=== PATIENT | male | born 1970 | race Asian ===

== ENCOUNTER 2020-04-13 17:52 | Inpatient (IN) | payer MEDICAID ==
[~2020-04-13] VITALS: Ht 167.6 cm; Wt 77.0 kg
[2020-04-13 18:25] LABS: BASOPHILS % (AUTO) 0.5 % (0.0-2.0); EOSINOPHILS % (AUTO) 1.5 % (1.0-6.0); HEMATOCRIT 49.6 % (41-53); HEMOGLOBIN 16.7 g/dL (13.5-17.5); LYMPHOCYTES # (AUTO) 1.3 K/uL (1.0-4.8); LYMPHOCYTES % (AUTO) 14.4 % (22.0-44.0); MEAN CORPUSCULAR HGB CONC 33.6 G/dL (31.0-37.0); MEAN CORPUSCULAR VOLUME 86 fL (80-100); MONOCYTES # (AUTO) 0.7 K/uL (0.1-1.0); MONOCYTES % (AUTO) 7.3 % (2.0-9.0); NEUTROPHILS # (AUTO) 7.1 K/uL (1.8-7.7); NEUTROPHILS % (AUTO) 76.3 % (40.0-70.0); PLATELET COUNT (AUTO) 281 K/uL (150-450); RED BLOOD CELL COUNT(AUTO) 5.74 MIL/uL (4.50-5.90); RED CELL DISTRIBUTION WIDTH 13.6 % (11.5-14.5)
[2020-04-13 18:35] LABS: ANION GAP 6 mmol/L (8-16); CALCIUM, TOTAL 8.6 mg/dL (8.8-10.5); CARBON DIOXIDE 29 mmol/L (22-29); CHLORIDE 105 mmol/L (98-107); CREATININE 1.18 mg/dL (0.60-1.30); GLOMERULAR FILTR. RATE CALC > 60 mL/min (>60); GLUCOSE,RANDOM 139 mg/dL (70-110); POTASSIUM 3.5 mmol/L (3.5-5.1); SODIUM SERUM 140 mmol/L (136-145); UREA NITROGEN, BLOOD 11 mg/dL (7-18)
[2020-04-13 18:40] LABS: ALANINE AMINOTRANSFERASE 16 U/L (12-78); ALBUMIN 3.2 g/dL (3.4-5.0); ALKALINE PHOSPHATASE 76 U/L (46-116); ASPARTATE AMINOTRANSFERASE 20 U/L (15-37); BILIRUBIN,TOTAL 0.2 mg/dL (0.1-1.0); INR 1.1 (0.9-1.1); PROTHROMBIN TIME 11.2 SEC (9.4-11.6)
[2020-04-13] MEDS ORDERED: ONDANSETRON HCL 4 MG/2 ML VIAL IVP PRN ×2 (19:00→19:45)
[2020-04-13] MEDS ORDERED: ACETAMINOPHEN 325 MG TABLET PO PRN (19:00)
[2020-04-13] MEDS ORDERED: 0.9% SODIUM CHLORIDE 10 ML SYRINGE IVP PRN (19:00)
[2020-04-13] MEDS ORDERED: SODIUM CHLORIDE 0.9% 100 ML ONE (19:01)
[2020-04-13] MEDS ORDERED: IOVERSOL 320 MG/ML 100 ML VIAL ONE (19:01)
[2020-04-13] MEDS ORDERED: LevETIRAcetam 1,000 MG in DEXTROSE 5%-WATER 100 ML IV ONE (19:30)
[2020-04-13] MEDS ORDERED: PROPOFOL 1% 20 ML VIAL IVP ONE (19:30)
[2020-04-13 19:40] LABS: APPEARANCE,URINE CLEAR (CLEAR); BILIRUBIN,URINE NEGATIVE (NEGATIVE); GLUCOSE, URINE (UA) 100 mg/dL (NEGATIVE); KETONES,URINE NEGATIVE (NEGATIVE); LEUKOCYTE ESTERASE ,URINE NEGATIVE (NEGATIVE); NITRATE,URINE NEGATIVE (NEGATIVE); OCCULT BLOOD,URINE NEGATIVE (NEGATIVE); PH,URINE 7.5 (5.0-8.0); PROTEIN,URINE POS 1+ (NEGATIVE)
[2020-04-13] MEDS ORDERED: FentaNYL CITRATE-PF 100 MCG/2 ML VIAL IVP PRN (19:45)
[2020-04-13 19:47] LABS: AMPHET/METH SCREEN,URINE POSITIVE (NEGATIVE); BARBITURATE SCREEN, URINE NEGATIVE (NEGATIVE); BENZODIAZEPINES SCREEN,URINE NEGATIVE (NEGATIVE); CANNABINOID SCREEN,URINE NEGATIVE (NEGATIVE); COCAINE SCREEN,URINE NEGATIVE (NEGATIVE); METHADONE SCREEN, URINE NEGATIVE (NEGATIVE); OPIATE SCREEN,URINE NEGATIVE (NEGATIVE); PHENCYCLIDINE SCREEN,URINE NEGATIVE (NEGATIVE)
[2020-04-13] MEDS ORDERED: LORazepam 2 MG/ML VIAL ONE (19:47)
[2020-04-13] MEDS ORDERED: OXYGEN THERAPY IH SCH (20:00)
[2020-04-13 20:10] LABS: BACTERIA,URINE None Seen /HPF (None Seen); RBC,URINE None Seen /HPF (0-2); SQUAMOUS EPITHELIAL CELL,UR None Seen /LPF (None Seen); WBC,URINE 0-2 /HPF (0-5)
[2020-04-13] MEDS ORDERED: NiCARDipine HCL 25 MG in DEXTROSE 5%-WATER 240 ML IV PRN (21:00)
[2020-04-13] MEDS ORDERED: LORazepam 2 MG/ML VIAL IVP ONE ×2 (21:00)
[2020-04-13] MEDS ORDERED: MIDAZOLAM HCL 5 MG/ML VIAL IVP ONE (21:00)
[2020-04-13] MEDS ORDERED: FentaNYL CITRATE-PF 100 MCG/2 ML VIAL IVP ONE (21:00)
[2020-04-13] MEDS: FAMOTIDINE 10 MG/ML 2 ML VIAL IVP SCH (21:40)
[2020-04-13] MEDS: PROPOFOL 1000 MG/ISO-OSM 100 ML IV PRN ×2 (21:43→23:10)
[2020-04-13 21:57] LABS: ABG A-A DIFF O2 368.3 mmHg (10-20.0); ABG BASE EXCESS 2.1 mmol/L (-2.0-3.0); ABG CARBOXYHEMOGLOBIN 1.1 % (0.0-1.5); ABG HCO3 25.8 mmol/L (22.0-26.0); ABG METHEMOGLOBIN 0.3 % (0.0-1.5); ABG OXYGEN CONTENT 23.6 mL/dL (15.0-23.0); ABG OXYGEN SATURATION 99.6 % (95.0-98.0); ABG OXYHEMOGLOBIN 98.2 % (94.0-100.0); ABG PCO2 46 mmHg (35-45); ABG TOTAL HEMOGLOBIN 16.6 G/dL (12.0-18.0); PO2, ARTERIAL BG 300.1 mmHg (88.0-96.0); SOURCE, BLOOD GAS ARTERIAL; TEMPERATURE, FAHRENHEIT, BG 97.8 FAHREN (96.0-98.6)
[2020-04-13 21:58] LABS: O2 DEVICE,BLOOD GAS VENTILATOR (ROOM AIR); PEEP,BG 5 cm H2O; SITE, BLOOD GAS LFT RADIAL; VT, ABG 450 ml
[2020-04-13] MEDS: MIDAZOLAM HCL 100 MG in DEXTROSE 5%-WATER 180 ML IV PRN (22:01)
[2020-04-13 23:13] LABS: COVID AG,FIA SOURCE NASOPHARYNGEAL
[2020-04-14] VITALS (8 sets, daily range): BP systolic 121–152; BP diastolic 66–93
[2020-04-14] MEDS ORDERED: PROPOFOL 1000 MG/ISO-OSM 100 ML IV ONE (07:52)
[2020-04-14] MEDS ORDERED: MIDAZOLAM HCL 100 MG in DEXTROSE 5%-WATER 180 ML IV PRN (08:00)
[2020-04-14] MEDS: PROPOFOL 1000 MG/ISO-OSM 100 ML IV PRN (08:00)
[2020-04-14] MEDS: FAMOTIDINE 10 MG/ML 2 ML VIAL IVP SCH ×2 (08:13→20:26)
[2020-04-14] MEDS: CHLORHEXIDINE GLUCONATE 0.12% 15 ML UDCUP ORAL RINSE MM SCH ×3 (08:13→20:26)
[2020-04-14] MEDS: LevETIRAcetam 500 MG in DEXTROSE 5%-WATER 100 ML IV SCH ×2 (08:13→20:26)
[2020-04-14] MEDS: ACETAMINOPHEN 650 MG/20.3 ML SOLUTION UDCUP NG PRN (20:41)
[2020-04-15] VITALS: BP 144/89
[2020-04-15] MEDS ORDERED: SODIUM CHLORIDE 0.9% 250 ML IV ONE (00:19)
[2020-04-15 04:00] VITALS: BP 155/94
[2020-04-15 05:32] LABS: BASOPHILS % (AUTO) 0.5 % (0.0-2.0); EOSINOPHILS % (AUTO) 1.2 % (1.0-6.0); HEMOGLOBIN 15.5 g/dL (13.5-17.5); LYMPHOCYTES % (AUTO) 6.5 % (22.0-44.0); MEAN CORPUSCULAR HEMOGLOBIN 29.7 pg (26.0-34.0); MEAN CORPUSCULAR HGB CONC 34.5 G/dL (31.0-37.0); MEAN CORPUSCULAR VOLUME 86 fL (80-100); MONOCYTES # (AUTO) 1.4 K/uL (0.1-1.0); MONOCYTES % (AUTO) 9.1 % (2.0-9.0); NEUTROPHILS # (AUTO) 13.1 K/uL (1.8-7.7); NEUTROPHILS % (AUTO) 82.7 % (40.0-70.0); PLATELET COUNT (AUTO) 231 K/uL (150-450); RED BLOOD CELL COUNT(AUTO) 5.21 MIL/uL (4.50-5.90); RED CELL DISTRIBUTION WIDTH 13.3 % (11.5-14.5)
[2020-04-15 05:45] LABS: ANION GAP 5 mmol/L (8-16); CALCIUM, TOTAL 8.3 mg/dL (8.8-10.5); CARBON DIOXIDE 29 mmol/L (22-29); CHLORIDE 104 mmol/L (98-107); CREATININE 1.15 mg/dL (0.60-1.30); GLOMERULAR FILTR. RATE CALC > 60 mL/min (>60); GLUCOSE,RANDOM 140 mg/dL (70-110); POTASSIUM 3.4 mmol/L (3.5-5.1); SODIUM SERUM 138 mmol/L (136-145); UREA NITROGEN, BLOOD 11 mg/dL (7-18)
[2020-04-15] MEDS: PROPOFOL 1000 MG/ISO-OSM 100 ML IV PRN ×3 (07:31→21:34)
[2020-04-15 08:00] VITALS: BP 123/85
[2020-04-15] MEDS: LevETIRAcetam 500 MG in DEXTROSE 5%-WATER 100 ML IV SCH ×2 (08:43→20:09)
[2020-04-15] MEDS: CHLORHEXIDINE GLUCONATE 0.12% 15 ML UDCUP ORAL RINSE MM SCH ×2 (08:43→20:43)
[2020-04-15] MEDS: FAMOTIDINE 10 MG/ML 2 ML VIAL IVP SCH ×2 (08:43→20:43)
[2020-04-15 12:00] VITALS: BP 152/99
[2020-04-15] MEDS ORDERED: METOPROLOL TARTRATE 5 MG/5 ML VIAL IVP PRN (13:00)
[2020-04-15] MEDS: SODIUM CHLORIDE 3% 500 ML IV SCH (14:42)
[2020-04-15 16:00] VITALS: BP 158/95
[2020-04-15] MEDS: HydrALAZINE HCL 20 MG/ML VIAL IVP PRN (17:29)
[2020-04-15] MEDS: ACETAMINOPHEN 650 MG/20.3 ML SOLUTION UDCUP NG PRN (18:54)
[2020-04-15] MEDS: POTASSIUM CHLORIDE 20 MEQ ER TABLET PO PRN ×2 (18:58→23:36)
[2020-04-15 20:00] VITALS: BP 163/86
[2020-04-15 23:27] LABS: POTASSIUM 3.4 mmol/L (3.5-5.1)
[2020-04-16] VITALS: BP 159/88
[2020-04-16] MEDS: ACETAMINOPHEN 650 MG/20.3 ML SOLUTION UDCUP NG PRN ×3 (00:01→13:02)
[2020-04-16] MEDS: PROPOFOL 1000 MG/ISO-OSM 100 ML IV PRN ×6 (01:14→20:36)
[2020-04-16 01:36] LABS: APPEARANCE,URINE CLOUDY (CLEAR); GLUCOSE, URINE (UA) NEGATIVE (NEGATIVE); KETONES,URINE TRACE mg/dL (NEGATIVE); LEUKOCYTE ESTERASE ,URINE SMALL (NEGATIVE); NITRATE,URINE NEGATIVE (NEGATIVE); OCCULT BLOOD,URINE LARGE (NEGATIVE); PH,URINE 5.5 (5.0-8.0); PROTEIN,URINE POS 1+ (NEGATIVE)
[2020-04-16 01:50] LABS: BILIRUBIN,URINE PRELIM. POSITIVE (NEGATIVE)
[2020-04-16 02:07] LABS: BACTERIA,URINE Moderate /HPF (None Seen); RBC,URINE Full Field /HPF (0-2); SQUAMOUS EPITHELIAL CELL,UR Few /LPF (None Seen); WBC,URINE 26-50 /HPF (0-5)
[2020-04-16 04:00] VITALS: BP 147/89
[2020-04-16 04:04] LABS: ANION GAP 6 mmol/L (8-16); CALCIUM, TOTAL 8.1 mg/dL (8.8-10.5); CARBON DIOXIDE 28 mmol/L (22-29); CHLORIDE 110 mmol/L (98-107); CREATININE 1.09 mg/dL (0.60-1.30); GLOMERULAR FILTR. RATE CALC > 60 mL/min (>60); GLUCOSE,RANDOM 114 mg/dL (70-110); PHOSPHORUS 2.6 mg/dL (2.5-4.9); SODIUM SERUM 144 mmol/L (136-145); UREA NITROGEN, BLOOD 11 mg/dL (7-18)
[2020-04-16 08:00] VITALS: BP 145/104
[2020-04-16] MEDS: LevETIRAcetam 500 MG in DEXTROSE 5%-WATER 100 ML IV SCH ×2 (08:28→19:24)
[2020-04-16] MEDS: CHLORHEXIDINE GLUCONATE 0.12% 15 ML UDCUP ORAL RINSE MM SCH ×2 (08:29→20:36)
[2020-04-16] MEDS: FAMOTIDINE 10 MG/ML 2 ML VIAL IVP SCH ×2 (08:29→20:36)
[2020-04-16] MEDS: SODIUM CHLORIDE 3% 500 ML IV SCH ×2 (09:47→22:54)
[2020-04-16] MEDS: CefTRIAXone 1 GM/DEXTROSE 50 ML IV SCH (09:47)
[2020-04-16 12:00] VITALS: BP 145/104
[2020-04-16 16:00] VITALS: BP 131/91
[2020-04-16] MEDS ORDERED: SODIUM CHLORIDE 0.9% 250 ML IV ONE (17:29)
[2020-04-16 20:00] VITALS: BP 135/86
[2020-04-17] VITALS: BP 146/92
[2020-04-17] MEDS: PROPOFOL 1000 MG/ISO-OSM 100 ML IV PRN ×5 (01:00→22:33)
[2020-04-17] MEDS: ACETAMINOPHEN 650 MG/20.3 ML SOLUTION UDCUP NG PRN (01:08)
[2020-04-17 04:00] VITALS: BP 130/73
[2020-04-17 05:13] LABS: BASOPHILS % (AUTO) 0.2 % (0.0-2.0); EOSINOPHILS % (AUTO) 0.2 % (1.0-6.0); HEMATOCRIT 40.1 % (41-53); HEMOGLOBIN 12.9 g/dL (13.5-17.5); LYMPHOCYTES % (AUTO) 8.7 % (22.0-44.0); MEAN CORPUSCULAR HEMOGLOBIN 28.2 pg (26.0-34.0); MEAN CORPUSCULAR HGB CONC 32.3 G/dL (31.0-37.0); MEAN CORPUSCULAR VOLUME 87 fL (80-100); MONOCYTES # (AUTO) 1.1 K/uL (0.1-1.0); MONOCYTES % (AUTO) 9.5 % (2.0-9.0); NEUTROPHILS # (AUTO) 9.4 K/uL (1.8-7.7); NEUTROPHILS % (AUTO) 81.4 % (40.0-70.0); PLATELET COUNT (AUTO) 213 K/uL (150-450); RED BLOOD CELL COUNT(AUTO) 4.59 MIL/uL (4.50-5.90); RED CELL DISTRIBUTION WIDTH 13.7 % (11.5-14.5)
[2020-04-17 05:54] LABS: ANION GAP -1 mmol/L (8-16); CALCIUM, TOTAL 8.5 mg/dL (8.8-10.5); CARBON DIOXIDE 25 mmol/L (22-29); CHLORIDE 108 mmol/L (98-107); CREATININE 1.04 mg/dL (0.60-1.30); GLOMERULAR FILTR. RATE CALC > 60 mL/min (>60); GLUCOSE,RANDOM 127 mg/dL (70-110); POTASSIUM 3.7 mmol/L (3.5-5.1); SODIUM SERUM 132 mmol/L (136-145); UREA NITROGEN, BLOOD 16 mg/dL (7-18)
[2020-04-17] MEDS: LevETIRAcetam 500 MG in DEXTROSE 5%-WATER 100 ML IV SCH ×2 (07:46→20:23)
[2020-04-17] MEDS: CefTRIAXone 1 GM/DEXTROSE 50 ML IV SCH (07:46)
[2020-04-17] MEDS: CHLORHEXIDINE GLUCONATE 0.12% 15 ML UDCUP ORAL RINSE MM SCH ×2 (07:47→20:26)
[2020-04-17] MEDS: FAMOTIDINE 10 MG/ML 2 ML VIAL IVP SCH ×2 (07:47→20:26)
[2020-04-17 08:00] VITALS: BP 136/91
[2020-04-17] MEDS: SODIUM CHLORIDE 3% 500 ML IV SCH ×3 (10:42→20:35)
[2020-04-17] MEDS ORDERED: METOPROLOL TARTRATE 25 MG TABLET NG SCH (11:30)
[2020-04-17 12:00] VITALS: BP 127/88
[2020-04-17 13:22] LABS: ABG A-A DIFF O2 108.4 mmHg (10-20.0); ABG BASE EXCESS -1.3 mmol/L (-2.0-3.0); ABG CARBOXYHEMOGLOBIN 0.6 % (0.0-1.5); ABG HCO3 23.7 mmol/L (22.0-26.0); ABG METHEMOGLOBIN 0.3 % (0.0-1.5); ABG OXYGEN SATURATION 98.7 % (95.0-98.0); ABG OXYHEMOGLOBIN 97.8 % (94.0-100.0); ABG PCO2 38 mmHg (35-45); ABG PH 7.404 (7.35-7.450); ABG TOTAL HEMOGLOBIN 14.4 G/dL (12.0-18.0); PO2, ARTERIAL BG 132.6 mmHg (88.0-96.0); SOURCE, BLOOD GAS ARTERIAL; TEMPERATURE, FAHRENHEIT, BG 98.6 FAHREN (96.0-98.6)
[2020-04-17 13:24] LABS: O2 DEVICE,BLOOD GAS VENTILATOR (ROOM AIR); SITE, BLOOD GAS RT RADIAL
[2020-04-17 13:25] LABS: PEEP,BG 5 cm H2O; VT, ABG 450 ml
[2020-04-17] MEDS: HydrALAZINE HCL 25 MG TABLET NG SCH ×2 (13:30→23:57)
[2020-04-17 16:00] VITALS: BP 146/91
[2020-04-17] MEDS ORDERED: SODIUM CHLORIDE 0.9% 250 ML IV ONE (18:42)
[2020-04-17 20:00] VITALS: BP 157/81
[2020-04-17] MEDS: HydrALAZINE HCL 20 MG/ML VIAL IVP PRN (21:06)
[2020-04-17] MEDS ORDERED: PNEUMOCOCCAL VACCINE POLYVALENT 0.5 ML VIAL [PPSV23] IM ONE (23:45)
[2020-04-17] MEDS ORDERED: INFLUENZA VIRUS VACCINE QVS 2020-21 (6MO+)/PF 60 MCG/0.5 ML SYRINGE IM ONE (23:45)
[2020-04-18] VITALS: BP 141/72
[2020-04-18] MEDS: PROPOFOL 1000 MG/ISO-OSM 100 ML IV PRN ×6 (01:45→21:57)
[2020-04-18] MEDS: ACETAMINOPHEN 650 MG/20.3 ML SOLUTION UDCUP NG PRN ×3 (03:07→23:36)
[2020-04-18] MEDS: MIDAZOLAM HCL 100 MG in DEXTROSE 5%-WATER 180 ML IV PRN ×2 (03:45→20:29)
[2020-04-18 04:00] VITALS: BP 135/72
[2020-04-18 04:57] LABS: BASOPHILS % (AUTO) 0.5 % (0.0-2.0); EOSINOPHILS % (AUTO) 0.1 % (1.0-6.0); HEMATOCRIT 40.1 % (41-53); HEMOGLOBIN 13.2 g/dL (13.5-17.5); LYMPHOCYTES # (AUTO) 0.9 K/uL (1.0-4.8); LYMPHOCYTES % (AUTO) 8.1 % (22.0-44.0); MEAN CORPUSCULAR HEMOGLOBIN 28.8 pg (26.0-34.0); MEAN CORPUSCULAR VOLUME 87 fL (80-100); MONOCYTES # (AUTO) 1.3 K/uL (0.1-1.0); MONOCYTES % (AUTO) 11.5 % (2.0-9.0); NEUTROPHILS # (AUTO) 8.9 K/uL (1.8-7.7); NEUTROPHILS % (AUTO) 79.8 % (40.0-70.0); PLATELET COUNT (AUTO) 206 K/uL (150-450); RED CELL DISTRIBUTION WIDTH 13.7 % (11.5-14.5)
[2020-04-18 05:14] LABS: ANION GAP 15 mmol/L (8-16); CALCIUM, TOTAL 8.6 mg/dL (8.8-10.5); CARBON DIOXIDE 27 mmol/L (22-29); CHLORIDE 114 mmol/L (98-107); CREATININE 1.21 mg/dL (0.60-1.30); GLOMERULAR FILTR. RATE CALC > 60 mL/min (>60); GLUCOSE,RANDOM 176 mg/dL (70-110); PHOSPHORUS 2.8 mg/dL (2.5-4.9); POTASSIUM 3.6 mmol/L (3.5-5.1); SODIUM SERUM 156 mmol/L (136-145); UREA NITROGEN, BLOOD 18 mg/dL (7-18)
[2020-04-18] MEDS: SODIUM CHLORIDE 3% 500 ML IV SCH ×2 (05:50→19:26)
[2020-04-18] MEDS: POTASSIUM CHL 10 MEQ/WATER 50 ML IV PRN ×3 (06:33→08:37)
[2020-04-18 08:00] VITALS: BP 140/80
[2020-04-18] MEDS: HydrALAZINE HCL 25 MG TABLET NG SCH ×3 (08:53→16:07)
[2020-04-18] MEDS: FAMOTIDINE 10 MG/ML 2 ML VIAL IVP SCH ×2 (08:53→20:21)
[2020-04-18] MEDS: CHLORHEXIDINE GLUCONATE 0.12% 15 ML UDCUP ORAL RINSE MM SCH ×2 (08:53→20:21)
[2020-04-18] MEDS: CefTRIAXone 1 GM/DEXTROSE 50 ML IV SCH (08:53)
[2020-04-18] MEDS: LevETIRAcetam 500 MG in DEXTROSE 5%-WATER 100 ML IV SCH ×2 (08:53→19:21)
[2020-04-18] MEDS ORDERED: MAGNESIUM HYDROXIDE SUSPENSION 30 ML UDCUP PO PRN (10:00)
[2020-04-18] MEDS ORDERED: BISACODYL 10 MG RECTAL RECTAL SUPPOSITORY PR PRN (10:00)
[2020-04-18 12:00] VITALS: BP 157/77
[2020-04-18] MEDS: FentaNYL CITRATE PF 500 MCG in DEXTROSE 5%-WATER 90 ML IV PRN (14:23)
[2020-04-18 16:00] VITALS: BP 150/75
[2020-04-18] MEDS: HydrALAZINE HCL 20 MG/ML VIAL IVP PRN (16:02)
[2020-04-18] MEDS ORDERED: SODIUM CHLORIDE 0.9% 250 ML IV ONE (19:26)
[2020-04-18 20:00] VITALS: BP 144/77
[2020-04-18] MEDS: DOCUSATE SODIUM 100 MG/10 ML LIQUID UDCUP PO SCH (20:21)
[2020-04-19] VITALS: BP 139/73
[2020-04-19] MEDS: FentaNYL CITRATE PF 500 MCG in DEXTROSE 5%-WATER 90 ML IV PRN ×2 (00:22→12:58)
[2020-04-19] MEDS: PROPOFOL 1000 MG/ISO-OSM 100 ML IV PRN ×6 (00:23→21:04)
[2020-04-19 04:00] VITALS: BP 133/84
[2020-04-19 06:13] LABS: ANION GAP 2 mmol/L (8-16); CALCIUM, TOTAL 8.6 mg/dL (8.8-10.5); CARBON DIOXIDE 26 mmol/L (22-29); CHLORIDE 119 mmol/L (98-107); CREATININE 1.22 mg/dL (0.60-1.30); GLOMERULAR FILTR. RATE CALC > 60 mL/min (>60); GLUCOSE,RANDOM 104 mg/dL (70-110); PHOSPHORUS 2.7 mg/dL (2.5-4.9); POTASSIUM 3.9 mmol/L (3.5-5.1); SODIUM SERUM 147 mmol/L (136-145); UREA NITROGEN, BLOOD 19 mg/dL (7-18)
[2020-04-19] MEDS ORDERED: SODIUM CHLORIDE 0.9% 250 ML IV ONE ×2 (06:31→20:29)
[2020-04-19] MEDS: SODIUM CHLORIDE 3% 500 ML IV SCH ×2 (07:45→21:15)
[2020-04-19 08:00] VITALS: BP 136/85
[2020-04-19] MEDS: LevETIRAcetam 500 MG in DEXTROSE 5%-WATER 100 ML IV SCH ×2 (08:28→20:40)
[2020-04-19] MEDS: HydrALAZINE HCL 25 MG TABLET NG SCH ×3 (08:28→23:39)
[2020-04-19] MEDS: CefTRIAXone 1 GM/DEXTROSE 50 ML IV SCH (08:28)
[2020-04-19] MEDS: DOCUSATE SODIUM 100 MG/10 ML LIQUID UDCUP PO SCH ×2 (08:29→21:02)
[2020-04-19] MEDS: FAMOTIDINE 10 MG/ML 2 ML VIAL IVP SCH ×2 (08:29→21:03)
[2020-04-19] MEDS: CHLORHEXIDINE GLUCONATE 0.12% 15 ML UDCUP ORAL RINSE MM SCH ×2 (08:29→21:03)
[2020-04-19 08:57] LABS: ABG A-A DIFF O2 115.8 mmHg (10-20.0); ABG BASE EXCESS 0.5 mmol/L (-2.0-3.0); ABG CARBOXYHEMOGLOBIN 0.4 % (0.0-1.5); ABG HCO3 25.1 mmol/L (22.0-26.0); ABG METHEMOGLOBIN 0.3 % (0.0-1.5); ABG OXYGEN CONTENT 17.4 mL/dL (15.0-23.0); ABG OXYGEN SATURATION 97.1 % (95.0-98.0); ABG OXYHEMOGLOBIN 96.4 % (94.0-100.0); ABG PCO2 37 mmHg (35-45); ABG PH 7.441 (7.35-7.450); ABG TOTAL HEMOGLOBIN 12.8 G/dL (12.0-18.0); O2 DEVICE,BLOOD GAS VENTILATOR (ROOM AIR); PO2, ARTERIAL BG 90.9 mmHg (88.0-96.0); SITE, BLOOD GAS LFT RADIAL; SOURCE, BLOOD GAS ARTERIAL; TEMPERATURE, FAHRENHEIT, BG 98.4 FAHREN (96.0-98.6)
[2020-04-19 08:58] LABS: PEEP,BG 5 cm H2O; VT, ABG 450 ml
[2020-04-19 11:24] LABS: BASOPHILS % (AUTO) 0.7 % (0.0-2.0); EOSINOPHILS % (AUTO) 2.1 % (1.0-6.0); HEMATOCRIT 39.4 % (41-53); HEMOGLOBIN 12.6 g/dL (13.5-17.5); LYMPHOCYTES # (AUTO) 1.4 K/uL (1.0-4.8); LYMPHOCYTES % (AUTO) 15.6 % (22.0-44.0); MEAN CORPUSCULAR HEMOGLOBIN 28.2 pg (26.0-34.0); MEAN CORPUSCULAR HGB CONC 32.1 G/dL (31.0-37.0); MEAN CORPUSCULAR VOLUME 88 fL (80-100); MONOCYTES % (AUTO) 10.9 % (2.0-9.0); NEUTROPHILS # (AUTO) 6.3 K/uL (1.8-7.7); NEUTROPHILS % (AUTO) 70.7 % (40.0-70.0); PLATELET COUNT (AUTO) 204 K/uL (150-450); RED BLOOD CELL COUNT(AUTO) 4.48 MIL/uL (4.50-5.90); RED CELL DISTRIBUTION WIDTH 13.9 % (11.5-14.5)
[2020-04-19 12:00] VITALS: BP 133/75
[2020-04-19] MEDS: MIDAZOLAM HCL 100 MG in DEXTROSE 5%-WATER 180 ML IV PRN (15:26)
[2020-04-19 16:00] VITALS: BP 134/75
[2020-04-19] MEDS: ACETAMINOPHEN 650 MG/20.3 ML SOLUTION UDCUP NG PRN (16:45)
[2020-04-19 20:00] VITALS: BP 107/63
[2020-04-20] VITALS: BP 113/67
[2020-04-20] MEDS: PROPOFOL 1000 MG/ISO-OSM 100 ML IV PRN ×4 (00:33→13:53)
[2020-04-20 04:00] VITALS: BP 113/71
[2020-04-20 05:42] LABS: ANION GAP 7 mmol/L (8-16); CALCIUM, TOTAL 8.4 mg/dL (8.8-10.5); CARBON DIOXIDE 28 mmol/L (22-29); CHLORIDE 121 mmol/L (98-107); CREATININE 1.21 mg/dL (0.60-1.30); GLOMERULAR FILTR. RATE CALC > 60 mL/min (>60); GLUCOSE,RANDOM 107 mg/dL (70-110); POTASSIUM 3.1 mmol/L (3.5-5.1); SODIUM SERUM 156 mmol/L (136-145); UREA NITROGEN, BLOOD 22 mg/dL (7-18)
[2020-04-20] MEDS: ACETAMINOPHEN 650 MG/20.3 ML SOLUTION UDCUP NG PRN ×2 (06:07→20:26)
[2020-04-20] MEDS: POTASSIUM CHLORIDE 20 MEQ ER TABLET PO PRN ×2 (06:07→12:34)
[2020-04-20] MEDS: FentaNYL CITRATE PF 500 MCG in DEXTROSE 5%-WATER 90 ML IV PRN (06:08)
[2020-04-20] MEDS: MIDAZOLAM HCL 100 MG in DEXTROSE 5%-WATER 180 ML IV PRN (06:09)
[2020-04-20] MEDS: LevETIRAcetam 500 MG in DEXTROSE 5%-WATER 100 ML IV SCH ×2 (07:57→20:25)
[2020-04-20] MEDS: CefTRIAXone 1 GM/DEXTROSE 50 ML IV SCH (07:58)
[2020-04-20 08:00] VITALS: BP 105/57
[2020-04-20] MEDS: HydrALAZINE HCL 25 MG TABLET NG SCH ×3 (08:00→23:27)
[2020-04-20] MEDS: CHLORHEXIDINE GLUCONATE 0.12% 15 ML UDCUP ORAL RINSE MM SCH ×2 (09:20→20:26)
[2020-04-20] MEDS: DOCUSATE SODIUM 100 MG/10 ML LIQUID UDCUP PO SCH ×2 (09:20→20:25)
[2020-04-20] MEDS: FAMOTIDINE 10 MG/ML 2 ML VIAL IVP SCH ×2 (09:20→20:25)
[2020-04-20 11:06] LABS: ANION GAP 10 mmol/L (8-16); CALCIUM, TOTAL 8.3 mg/dL (8.8-10.5); CARBON DIOXIDE 26 mmol/L (22-29); CHLORIDE 121 mmol/L (98-107); CREATININE 1.17 mg/dL (0.60-1.30); GLOMERULAR FILTR. RATE CALC > 60 mL/min (>60); GLUCOSE,RANDOM 123 mg/dL (70-110); POTASSIUM 3.4 mmol/L (3.5-5.1); SODIUM SERUM 157 mmol/L (136-145); UREA NITROGEN, BLOOD 21 mg/dL (7-18)
[2020-04-20 12:00] VITALS: BP 109/64
[2020-04-20 16:00] VITALS: BP 113/66
[2020-04-20 16:12] LABS: POTASSIUM 3.6 mmol/L (3.5-5.1)
[2020-04-20 20:00] VITALS: BP 125/73
[2020-04-20] MEDS ORDERED: SODIUM CHLORIDE 0.9% 250 ML IV ONE (20:02)
[2020-04-20] MEDS: SODIUM CHLORIDE 3% 500 ML IV SCH (20:29)
[2020-04-20] MEDS: POTASSIUM CHL 10 MEQ/WATER 50 ML IV PRN ×3 (22:14→23:27)
[2020-04-21] VITALS: BP 113/71
[2020-04-21] MEDS: PROPOFOL 1000 MG/ISO-OSM 100 ML IV PRN ×4 (00:19→21:28)
[2020-04-21] MEDS: MIDAZOLAM HCL 100 MG in DEXTROSE 5%-WATER 180 ML IV PRN ×2 (01:56→21:27)
[2020-04-21 04:00] VITALS: BP 123/77
[2020-04-21 06:16] LABS: ANION GAP 7 mmol/L (8-16); CALCIUM, TOTAL 8.2 mg/dL (8.8-10.5); CARBON DIOXIDE 28 mmol/L (22-29); CHLORIDE 116 mmol/L (98-107); CREATININE 1.13 mg/dL (0.60-1.30); GLOMERULAR FILTR. RATE CALC > 60 mL/min (>60); GLUCOSE,RANDOM 106 mg/dL (70-110); POTASSIUM 3.6 mmol/L (3.5-5.1); SODIUM SERUM 151 mmol/L (136-145); UREA NITROGEN, BLOOD 22 mg/dL (7-18)
[2020-04-21 08:00] VITALS: BP 130/71
[2020-04-21] MEDS: CefTRIAXone 1 GM/DEXTROSE 50 ML IV SCH (08:12)
[2020-04-21] MEDS: POTASSIUM CHL 10 MEQ/WATER 50 ML IV PRN ×3 (08:12→10:29)
[2020-04-21] MEDS: LevETIRAcetam 500 MG in DEXTROSE 5%-WATER 100 ML IV SCH ×2 (08:12→21:00)
[2020-04-21] MEDS: HydrALAZINE HCL 20 MG/ML VIAL IVP PRN (08:13)
[2020-04-21] MEDS: DOCUSATE SODIUM 100 MG/10 ML LIQUID UDCUP PO SCH ×2 (08:13→21:25)
[2020-04-21] MEDS: CHLORHEXIDINE GLUCONATE 0.12% 15 ML UDCUP ORAL RINSE MM SCH ×2 (08:13→21:25)
[2020-04-21] MEDS: HydrALAZINE HCL 25 MG TABLET NG SCH ×2 (08:14→16:23)
[2020-04-21] MEDS: FAMOTIDINE 10 MG/ML 2 ML VIAL IVP SCH ×2 (08:14→21:26)
[2020-04-21] MEDS: FentaNYL CITRATE PF 500 MCG in DEXTROSE 5%-WATER 90 ML IV PRN (10:26)
[2020-04-21 12:00] VITALS: BP 128/64
[2020-04-21 16:00] VITALS: BP 134/69
[2020-04-21 20:00] VITALS: BP 128/72
[2020-04-21] MEDS: SODIUM CHLORIDE 3% 500 ML IV SCH (21:00)
[2020-04-21] MEDS ORDERED: SODIUM CHLORIDE 0.9% 250 ML IV ONE (21:22)
[2020-04-22] VITALS: BP 119/75
[2020-04-22] MEDS: HydrALAZINE HCL 25 MG TABLET NG SCH ×3 (00:19→16:29)
[2020-04-22] MEDS: PROPOFOL 1000 MG/ISO-OSM 100 ML IV PRN ×3 (03:11→17:11)
[2020-04-22] MEDS: FentaNYL CITRATE PF 500 MCG in DEXTROSE 5%-WATER 90 ML IV PRN ×2 (03:12→17:10)
[2020-04-22 04:00] VITALS: BP 123/74
[2020-04-22 05:18] LABS: ANION GAP 5 mmol/L (8-16); CALCIUM, TOTAL 8.7 mg/dL (8.8-10.5); CARBON DIOXIDE 27 mmol/L (22-29); CHLORIDE 115 mmol/L (98-107); CREATININE 1.16 mg/dL (0.60-1.30); GLOMERULAR FILTR. RATE CALC > 60 mL/min (>60); GLUCOSE,RANDOM 122 mg/dL (70-110); POTASSIUM 3.6 mmol/L (3.5-5.1); SODIUM SERUM 147 mmol/L (136-145); UREA NITROGEN, BLOOD 24 mg/dL (7-18)
[2020-04-22 08:00] VITALS: BP 111/65
[2020-04-22] MEDS: CefTRIAXone 1 GM/DEXTROSE 50 ML IV SCH (08:03)
[2020-04-22] MEDS: LevETIRAcetam 500 MG in DEXTROSE 5%-WATER 100 ML IV SCH ×2 (08:03→20:37)
[2020-04-22] MEDS: FAMOTIDINE 10 MG/ML 2 ML VIAL IVP SCH ×2 (08:54→20:37)
[2020-04-22] MEDS: DOCUSATE SODIUM 100 MG/10 ML LIQUID UDCUP PO SCH ×2 (08:54→20:37)
[2020-04-22] MEDS: CHLORHEXIDINE GLUCONATE 0.12% 15 ML UDCUP ORAL RINSE MM SCH ×2 (08:54→20:37)
[2020-04-22] MEDS: POTASSIUM CHL 10 MEQ/WATER 50 ML IV PRN ×3 (08:55→09:37)
[2020-04-22 12:00] VITALS: BP 119/71
[2020-04-22 16:00] VITALS: BP 141/74
[2020-04-22] MEDS: MORPHINE SULFATE 2 MG/ML SYRINGE IVP PRN (17:33)
[2020-04-22 20:00] VITALS: BP 127/71
[2020-04-22] MEDS: SODIUM CHLORIDE 3% 500 ML IV SCH (21:08)
[2020-04-22] MEDS ORDERED: SODIUM CHLORIDE 0.9% 250 ML IV ONE (23:00)
[2020-04-22] MEDS: ACETAMINOPHEN 650 MG/20.3 ML SOLUTION UDCUP NG PRN (23:06)
[2020-04-23] VITALS (8 sets, daily range): BP systolic 126–161; BP diastolic 73–95
[2020-04-23] MEDS: MORPHINE SULFATE 2 MG/ML SYRINGE IVP PRN ×5 (00:26→22:39)
[2020-04-23] MEDS: HydrALAZINE HCL 25 MG TABLET NG SCH ×3 (00:46→15:39)
[2020-04-23] MEDS: PROPOFOL 1000 MG/ISO-OSM 100 ML IV PRN ×3 (00:50→21:51)
[2020-04-23 05:18] LABS: ANION GAP 5 mmol/L (8-16); CALCIUM, TOTAL 7.9 mg/dL (8.8-10.5); CARBON DIOXIDE 27 mmol/L (22-29); CHLORIDE 113 mmol/L (98-107); CREATININE 1.09 mg/dL (0.60-1.30); GLOMERULAR FILTR. RATE CALC > 60 mL/min (>60); GLUCOSE,RANDOM 113 mg/dL (70-110); POTASSIUM 3.7 mmol/L (3.5-5.1); SODIUM SERUM 145 mmol/L (136-145); UREA NITROGEN, BLOOD 26 mg/dL (7-18)
[2020-04-23] MEDS: LevETIRAcetam 500 MG in DEXTROSE 5%-WATER 100 ML IV SCH ×2 (07:53→19:48)
[2020-04-23] MEDS: CHLORHEXIDINE GLUCONATE 0.12% 15 ML UDCUP ORAL RINSE MM SCH ×2 (07:53→21:06)
[2020-04-23] MEDS: FAMOTIDINE 10 MG/ML 2 ML VIAL IVP SCH ×2 (07:53→21:06)
[2020-04-23] MEDS: DOCUSATE SODIUM 100 MG/10 ML LIQUID UDCUP PO SCH ×2 (07:53→21:06)
[2020-04-23] MEDS: LORazepam 2 MG/ML VIAL IVP PRN ×4 (12:12→22:39)
[2020-04-23] MEDS: HydrALAZINE HCL 20 MG/ML VIAL IVP PRN ×2 (12:42→21:07)
[2020-04-23] MEDS: SODIUM CHLORIDE 3% 500 ML IV SCH (19:48)
[2020-04-23] MEDS ORDERED: SODIUM CHLORIDE 0.9% 250 ML IV ONE (20:54)
[2020-04-24] VITALS (9 sets, daily range): BP systolic 125–169; BP diastolic 67–101
[2020-04-24] MEDS: MORPHINE SULFATE 2 MG/ML SYRINGE IVP PRN ×5 (00:21→13:33)
[2020-04-24] MEDS: LORazepam 2 MG/ML VIAL IVP PRN ×6 (00:21→13:33)
[2020-04-24] MEDS: HydrALAZINE HCL 25 MG TABLET NG SCH ×4 (00:21→23:21)
[2020-04-24] MEDS: PROPOFOL 1000 MG/ISO-OSM 100 ML IV PRN ×3 (03:18→19:48)
[2020-04-24 05:05] LABS: BASOPHILS % (AUTO) 0.7 % (0.0-2.0); EOSINOPHILS % (AUTO) 1.5 % (1.0-6.0); HEMATOCRIT 40.4 % (41-53); HEMOGLOBIN 13.1 g/dL (13.5-17.5); LYMPHOCYTES # (AUTO) 1.2 K/uL (1.0-4.8); LYMPHOCYTES % (AUTO) 9.6 % (22.0-44.0); MEAN CORPUSCULAR HEMOGLOBIN 28.3 pg (26.0-34.0); MEAN CORPUSCULAR HGB CONC 32.3 G/dL (31.0-37.0); MEAN CORPUSCULAR VOLUME 87 fL (80-100); MONOCYTES # (AUTO) 1.4 K/uL (0.1-1.0); MONOCYTES % (AUTO) 10.8 % (2.0-9.0); NEUTROPHILS % (AUTO) 77.4 % (40.0-70.0); PLATELET COUNT (AUTO) 177 K/uL (150-450); RED BLOOD CELL COUNT(AUTO) 4.62 MIL/uL (4.50-5.90); RED CELL DISTRIBUTION WIDTH 13.5 % (11.5-14.5)
[2020-04-24 05:25] LABS: ANION GAP 7 mmol/L (8-16); CARBON DIOXIDE 29 mmol/L (22-29); CHLORIDE 110 mmol/L (98-107); CREATININE 1.09 mg/dL (0.60-1.30); GLOMERULAR FILTR. RATE CALC > 60 mL/min (>60); GLUCOSE,RANDOM 124 mg/dL (70-110); PHOSPHORUS 3.2 mg/dL (2.5-4.9); POTASSIUM 3.6 mmol/L (3.5-5.1); SODIUM SERUM 146 mmol/L (136-145); UREA NITROGEN, BLOOD 21 mg/dL (7-18)
[2020-04-24] MEDS: POTASSIUM CHL 10 MEQ/WATER 50 ML IV PRN ×6 (05:53→17:15)
[2020-04-24] MEDS: LevETIRAcetam 500 MG in DEXTROSE 5%-WATER 100 ML IV SCH ×2 (08:13→19:48)
[2020-04-24] MEDS: DOCUSATE SODIUM 100 MG/10 ML LIQUID UDCUP PO SCH ×2 (08:14→20:32)
[2020-04-24] MEDS: FAMOTIDINE 10 MG/ML 2 ML VIAL IVP SCH ×2 (08:14→20:31)
[2020-04-24] MEDS: CHLORHEXIDINE GLUCONATE 0.12% 15 ML UDCUP ORAL RINSE MM SCH ×2 (08:16→20:32)
[2020-04-24] MEDS ORDERED: DEXMEDETOMIDINE HCL 400 MCG in SODIUM CHLORIDE 0.9% 96 ML IV PRN (10:00)
[2020-04-24 11:40] LABS: POTASSIUM 3.5 mmol/L (3.5-5.1)
[2020-04-24] MEDS ORDERED: SODIUM CHLORIDE 0.9% 250 ML IV ONE (19:44)
[2020-04-25] VITALS (9 sets, daily range): BP systolic 112–145; BP diastolic 66–95
[2020-04-25] MEDS: MORPHINE SULFATE 2 MG/ML SYRINGE IVP PRN ×3 (00:31→12:57)
[2020-04-25] MEDS: LORazepam 2 MG/ML VIAL IVP PRN ×4 (00:31→16:51)
[2020-04-25] MEDS: PROPOFOL 1000 MG/ISO-OSM 100 ML IV PRN ×4 (02:20→23:12)
[2020-04-25 08:02] LABS: ANION GAP 5 mmol/L (8-16); CALCIUM, TOTAL 8.2 mg/dL (8.8-10.5); CARBON DIOXIDE 25 mmol/L (22-29); CHLORIDE 107 mmol/L (98-107); CREATININE 0.92 mg/dL (0.60-1.30); GLOMERULAR FILTR. RATE CALC > 60 mL/min (>60); GLUCOSE,RANDOM 106 mg/dL (70-110); POTASSIUM 3.8 mmol/L (3.5-5.1); SODIUM SERUM 137 mmol/L (136-145); UREA NITROGEN, BLOOD 22 mg/dL (7-18)
[2020-04-25] MEDS: HydrALAZINE HCL 25 MG TABLET NG SCH ×3 (09:06→23:12)
[2020-04-25] MEDS: LevETIRAcetam 500 MG in DEXTROSE 5%-WATER 100 ML IV SCH ×2 (09:06→19:31)
[2020-04-25] MEDS: CHLORHEXIDINE GLUCONATE 0.12% 15 ML UDCUP ORAL RINSE MM SCH ×2 (09:07→21:15)
[2020-04-25] MEDS: FAMOTIDINE 10 MG/ML 2 ML VIAL IVP SCH ×2 (09:07→21:16)
[2020-04-25] MEDS: DOCUSATE SODIUM 100 MG/10 ML LIQUID UDCUP PO SCH ×2 (09:09→21:15)
[2020-04-25] MEDS ORDERED: SODIUM CHLORIDE 0.9% 250 ML IV ONE (21:10)
[2020-04-26] VITALS: BP 125/85
[2020-04-26] MEDS: LORazepam 2 MG/ML VIAL IVP PRN ×2 (02:09→08:43)
[2020-04-26] MEDS: PROPOFOL 1000 MG/ISO-OSM 100 ML IV PRN ×5 (03:10→22:30)
[2020-04-26 04:00] VITALS: BP 119/80
[2020-04-26 05:48] LABS: ANION GAP 9 mmol/L (8-16); CARBON DIOXIDE 28 mmol/L (22-29); CHLORIDE 108 mmol/L (98-107); CREATININE 0.96 mg/dL (0.60-1.30); GLOMERULAR FILTR. RATE CALC > 60 mL/min (>60); GLUCOSE,RANDOM 111 mg/dL (70-110); POTASSIUM 3.7 mmol/L (3.5-5.1); SODIUM SERUM 145 mmol/L (136-145); UREA NITROGEN, BLOOD 21 mg/dL (7-18)
[2020-04-26 08:00] VITALS: BP 129/83
[2020-04-26] MEDS: FAMOTIDINE 10 MG/ML 2 ML VIAL IVP SCH ×2 (08:02→20:44)
[2020-04-26] MEDS: DOCUSATE SODIUM 100 MG/10 ML LIQUID UDCUP PO SCH ×2 (08:02→20:44)
[2020-04-26] MEDS: HydrALAZINE HCL 25 MG TABLET NG SCH ×3 (08:02→23:03)
[2020-04-26] MEDS: LevETIRAcetam 500 MG in DEXTROSE 5%-WATER 100 ML IV SCH ×2 (08:02→19:47)
[2020-04-26] MEDS: CHLORHEXIDINE GLUCONATE 0.12% 15 ML UDCUP ORAL RINSE MM SCH ×2 (08:02→20:44)
[2020-04-26 12:00] VITALS: BP 123/76
[2020-04-26 16:00] VITALS: BP 116/77
[2020-04-26 20:00] VITALS: BP 120/82
[2020-04-26] MEDS ORDERED: SODIUM CHLORIDE 0.9% 250 ML IV ONE (20:10)
[2020-04-27] VITALS: BP 132/82
[2020-04-27] MEDS: PROPOFOL 1000 MG/ISO-OSM 100 ML IV PRN ×6 (02:02→22:14)
[2020-04-27 04:00] VITALS: BP 126/81
[2020-04-27 05:27] LABS: ANION GAP 5 mmol/L (8-16); CALCIUM, TOTAL 8.6 mg/dL (8.8-10.5); CARBON DIOXIDE 28 mmol/L (22-29); CHLORIDE 109 mmol/L (98-107); CREATININE 1.02 mg/dL (0.60-1.30); GLOMERULAR FILTR. RATE CALC > 60 mL/min (>60); GLUCOSE,RANDOM 137 mg/dL (70-110); POTASSIUM 3.6 mmol/L (3.5-5.1); SODIUM SERUM 142 mmol/L (136-145); UREA NITROGEN, BLOOD 19 mg/dL (7-18)
[2020-04-27] MEDS: LevETIRAcetam 500 MG in DEXTROSE 5%-WATER 100 ML IV SCH ×2 (07:51→19:35)
[2020-04-27] MEDS: CHLORHEXIDINE GLUCONATE 0.12% 15 ML UDCUP ORAL RINSE MM SCH ×2 (07:51→20:42)
[2020-04-27] MEDS: FAMOTIDINE 10 MG/ML 2 ML VIAL IVP SCH ×2 (07:52→20:42)
[2020-04-27] MEDS: DOCUSATE SODIUM 100 MG/10 ML LIQUID UDCUP PO SCH ×2 (07:52→20:42)
[2020-04-27 08:00] VITALS: BP 113/78
[2020-04-27] MEDS: HydrALAZINE HCL 25 MG TABLET NG SCH ×3 (08:00→23:42)
[2020-04-27] MEDS ORDERED: AMINO ACIDS/PROTEIN HYDROLYS 30 ML TUBE PO SCH (10:00)
[2020-04-27] MEDS: POTASSIUM CHL 10 MEQ/WATER 50 ML IV PRN ×3 (10:10→14:44)
[2020-04-27 12:00] VITALS: BP 116/76
[2020-04-27] MEDS: AMINO ACIDS/PROTEIN HYDROLYS 30 ML TUBE PO SCH (14:35)
[2020-04-27 16:00] VITALS: BP 115/82
[2020-04-27 20:00] VITALS: BP 110/74
[2020-04-28] VITALS: BP 113/71
[2020-04-28] MEDS: PROPOFOL 1000 MG/ISO-OSM 100 ML IV PRN ×5 (01:52→18:40)
[2020-04-28] MEDS ORDERED: SODIUM CHLORIDE 0.9% 250 ML IV ONE (03:21)
[2020-04-28 04:00] VITALS: BP 113/73
[2020-04-28] MEDS: LevETIRAcetam 500 MG in DEXTROSE 5%-WATER 100 ML IV SCH ×2 (07:40→19:23)
[2020-04-28 08:00] VITALS: BP 122/78
[2020-04-28] MEDS: HydrALAZINE HCL 25 MG TABLET NG SCH ×2 (08:00→16:00)
[2020-04-28] MEDS: CHLORHEXIDINE GLUCONATE 0.12% 15 ML UDCUP ORAL RINSE MM SCH ×2 (08:06→19:59)
[2020-04-28] MEDS: DOCUSATE SODIUM 100 MG/10 ML LIQUID UDCUP PO SCH ×2 (08:06→19:59)
[2020-04-28] MEDS: FAMOTIDINE 10 MG/ML 2 ML VIAL IVP SCH ×2 (08:06→19:59)
[2020-04-28 09:11] LABS: ANION GAP 6 mmol/L (8-16); CALCIUM, TOTAL 8.2 mg/dL (8.8-10.5); CARBON DIOXIDE 29 mmol/L (22-29); CHLORIDE 107 mmol/L (98-107); GLOMERULAR FILTR. RATE CALC > 60 mL/min (>60); GLUCOSE,RANDOM 127 mg/dL (70-110); POTASSIUM 3.7 mmol/L (3.5-5.1); SODIUM SERUM 142 mmol/L (136-145); UREA NITROGEN, BLOOD 19 mg/dL (7-18)
[2020-04-28 12:00] VITALS: BP 108/70
[2020-04-28] MEDS: LORazepam 2 MG/ML VIAL IVP PRN (14:05)
[2020-04-28] MEDS: AMINO ACIDS/PROTEIN HYDROLYS 30 ML TUBE PO SCH (14:06)
[2020-04-28 20:00] VITALS: BP 126/82
[2020-04-29] VITALS: BP 128/80
[2020-04-29] MEDS: PROPOFOL 1000 MG/ISO-OSM 100 ML IV PRN ×6 (00:09→23:01)
[2020-04-29 04:00] VITALS: BP 122/80
[2020-04-29] MEDS ORDERED: SODIUM CHLORIDE 0.9% 250 ML IV ONE (04:25)
[2020-04-29] MEDS: LevETIRAcetam 500 MG in DEXTROSE 5%-WATER 100 ML IV SCH ×2 (07:57→21:08)
[2020-04-29 08:00] VITALS: BP 121/75
[2020-04-29] MEDS: HydrALAZINE HCL 25 MG TABLET NG SCH ×3 (08:00→16:00)
[2020-04-29] MEDS: CHLORHEXIDINE GLUCONATE 0.12% 15 ML UDCUP ORAL RINSE MM SCH ×2 (09:05→21:07)
[2020-04-29] MEDS: DOCUSATE SODIUM 100 MG/10 ML LIQUID UDCUP PO SCH ×2 (09:05→21:07)
[2020-04-29] MEDS: FAMOTIDINE 10 MG/ML 2 ML VIAL IVP SCH ×2 (09:05→21:08)
[2020-04-29 12:00] VITALS: BP 120/80
[2020-04-29] MEDS: AMINO ACIDS/PROTEIN HYDROLYS 30 ML TUBE PO SCH (14:41)
[2020-04-29 16:00] VITALS: BP 120/72
[2020-04-29] MEDS: DEXTRAN 70 0.1%/HYPROMELL 0.3% 0.9 ML OPHTHALMIC SOLUTION [PF] OU SCH (18:05)
[2020-04-29 20:00] VITALS: BP 113/74
[2020-04-29] MEDS: LORazepam 2 MG/ML VIAL IVP PRN (23:16)
[2020-04-30] VITALS: BP 142/85
[2020-04-30] MEDS: DEXTRAN 70 0.1%/HYPROMELL 0.3% 0.9 ML OPHTHALMIC SOLUTION [PF] OU SCH ×4 (00:44→23:11)
[2020-04-30] MEDS: HydrALAZINE HCL 25 MG TABLET NG SCH ×4 (00:45→23:06)
[2020-04-30 04:00] VITALS: BP 125/77
[2020-04-30] MEDS: PROPOFOL 1000 MG/ISO-OSM 100 ML IV PRN ×4 (04:56→23:06)
[2020-04-30] MEDS: LevETIRAcetam 500 MG in DEXTROSE 5%-WATER 100 ML IV SCH ×2 (07:31→19:58)
[2020-04-30] MEDS: FAMOTIDINE 10 MG/ML 2 ML VIAL IVP SCH ×2 (07:32→20:02)
[2020-04-30] MEDS: DOCUSATE SODIUM 100 MG/10 ML LIQUID UDCUP PO SCH ×2 (07:32→20:02)
[2020-04-30] MEDS: CHLORHEXIDINE GLUCONATE 0.12% 15 ML UDCUP ORAL RINSE MM SCH ×2 (07:32→20:02)
[2020-04-30 08:00] VITALS: BP 127/75
[2020-04-30] MEDS: AMINO ACIDS/PROTEIN HYDROLYS 30 ML TUBE PO SCH ×2 (10:46→13:49)
[2020-04-30] MEDS: LORazepam 2 MG/ML VIAL IVP PRN (11:13)
[2020-04-30 12:00] VITALS: BP 132/94
[2020-04-30 16:00] VITALS: BP 115/81
[2020-04-30 20:00] VITALS: BP 112/74
[2020-04-30] MEDS ORDERED: SODIUM CHLORIDE 0.9% 250 ML IV ONE (20:00)
[2020-05-01] VITALS: BP 120/77
[2020-05-01 04:00] VITALS: BP 136/78
[2020-05-01] MEDS: PROPOFOL 1000 MG/ISO-OSM 100 ML IV PRN ×4 (04:01→18:26)
[2020-05-01 05:06] LABS: BASOPHILS % (AUTO) 0.4 % (0.0-2.0); EOSINOPHILS % (AUTO) 2.6 % (1.0-6.0); HEMATOCRIT 38.2 % (41-53); HEMOGLOBIN 12.3 g/dL (13.5-17.5); LYMPHOCYTES # (AUTO) 1.1 K/uL (1.0-4.8); MEAN CORPUSCULAR HGB CONC 32.2 G/dL (31.0-37.0); MEAN CORPUSCULAR VOLUME 87 fL (80-100); MONOCYTES # (AUTO) 1.3 K/uL (0.1-1.0); MONOCYTES % (AUTO) 11.5 % (2.0-9.0); NEUTROPHILS # (AUTO) 8.4 K/uL (1.8-7.7); NEUTROPHILS % (AUTO) 75.5 % (40.0-70.0); PLATELET COUNT (AUTO) 223 K/uL (150-450); RED BLOOD CELL COUNT(AUTO) 4.41 MIL/uL (4.50-5.90); RED CELL DISTRIBUTION WIDTH 13.6 % (11.5-14.5)
[2020-05-01 05:34] LABS: ANION GAP 6 mmol/L (8-16); CALCIUM, TOTAL 8.2 mg/dL (8.8-10.5); CARBON DIOXIDE 29 mmol/L (22-29); CHLORIDE 105 mmol/L (98-107); CREATININE 1.07 mg/dL (0.60-1.30); GLOMERULAR FILTR. RATE CALC > 60 mL/min (>60); GLUCOSE,RANDOM 114 mg/dL (70-110); POTASSIUM 3.8 mmol/L (3.5-5.1); SODIUM SERUM 140 mmol/L (136-145); UREA NITROGEN, BLOOD 23 mg/dL (7-18)
[2020-05-01] MEDS: DEXTRAN 70 0.1%/HYPROMELL 0.3% 0.9 ML OPHTHALMIC SOLUTION [PF] OU SCH ×3 (07:54→23:34)
[2020-05-01] MEDS: CHLORHEXIDINE GLUCONATE 0.12% 15 ML UDCUP ORAL RINSE MM SCH ×2 (07:54→19:48)
[2020-05-01] MEDS: FAMOTIDINE 10 MG/ML 2 ML VIAL IVP SCH ×2 (07:54→19:48)
[2020-05-01] MEDS: LevETIRAcetam 500 MG in DEXTROSE 5%-WATER 100 ML IV SCH ×2 (07:55→19:48)
[2020-05-01 08:00] VITALS: BP 131/80
[2020-05-01] MEDS: HydrALAZINE HCL 25 MG TABLET NG SCH ×3 (08:42→23:33)
[2020-05-01] MEDS: AMINO ACIDS/PROTEIN HYDROLYS 30 ML TUBE PO SCH ×2 (08:42→14:35)
[2020-05-01] MEDS: DOCUSATE SODIUM 100 MG/10 ML LIQUID UDCUP PO SCH ×2 (08:42→19:45)
[2020-05-01 12:00] VITALS: BP 117/71
[2020-05-01 16:00] VITALS: BP 113/67
[2020-05-01] MEDS: SCOPOLAMINE HYDROBROMIDE 1 MG/72 HOUR PATCH TD SCH (18:26)
[2020-05-01 20:00] VITALS: BP 127/90
[2020-05-02] VITALS (8 sets, daily range): BP systolic 94–141; BP diastolic 59–86
[2020-05-02] MEDS: PROPOFOL 1000 MG/ISO-OSM 100 ML IV PRN ×5 (02:38→23:23)
[2020-05-02] MEDS ORDERED: SODIUM CHLORIDE 0.9% 250 ML IV ONE ×2 (05:58→22:16)
[2020-05-02] MEDS: DEXTRAN 70 0.1%/HYPROMELL 0.3% 0.9 ML OPHTHALMIC SOLUTION [PF] OU SCH ×3 (07:36→23:37)
[2020-05-02] MEDS: CHLORHEXIDINE GLUCONATE 0.12% 15 ML UDCUP ORAL RINSE MM SCH ×2 (07:36→20:09)
[2020-05-02] MEDS: LevETIRAcetam 500 MG in DEXTROSE 5%-WATER 100 ML IV SCH ×2 (07:36→19:25)
[2020-05-02] MEDS: FAMOTIDINE 10 MG/ML 2 ML VIAL IVP SCH ×2 (07:36→20:09)
[2020-05-02] MEDS: DOCUSATE SODIUM 100 MG/10 ML LIQUID UDCUP PO SCH ×2 (07:37→19:23)
[2020-05-02] MEDS: HydrALAZINE HCL 25 MG TABLET NG SCH ×3 (07:37→23:37)
[2020-05-02] MEDS: AMINO ACIDS/PROTEIN HYDROLYS 30 ML TUBE PO SCH ×2 (10:34→14:32)
[2020-05-02] MEDS: MORPHINE SULFATE 2 MG/ML SYRINGE IVP PRN (12:32)
[2020-05-02] MEDS: LORazepam 2 MG/ML VIAL IVP PRN ×2 (12:32→22:30)
[2020-05-02 18:23] LABS: COVID AG,FIA SOURCE NASOPHARYNGEAL
[2020-05-03] VITALS: BP 116/56
[2020-05-03 04:00] VITALS: BP 115/63
[2020-05-03] MEDS: PROPOFOL 1000 MG/ISO-OSM 100 ML IV PRN ×4 (04:59→22:53)
[2020-05-03 08:00] VITALS: BP 124/72
[2020-05-03] MEDS: HydrALAZINE HCL 25 MG TABLET NG SCH ×3 (08:00→22:52)
[2020-05-03] MEDS: DOCUSATE SODIUM 100 MG/10 ML LIQUID UDCUP PO SCH ×2 (09:00→20:21)
[2020-05-03] MEDS: FAMOTIDINE 10 MG/ML 2 ML VIAL IVP SCH ×2 (09:30→20:30)
[2020-05-03] MEDS: CHLORHEXIDINE GLUCONATE 0.12% 15 ML UDCUP ORAL RINSE MM SCH ×2 (09:30→20:30)
[2020-05-03] MEDS: LevETIRAcetam 500 MG in DEXTROSE 5%-WATER 100 ML IV SCH ×2 (09:31→20:20)
[2020-05-03] MEDS: AMINO ACIDS/PROTEIN HYDROLYS 30 ML TUBE PO SCH ×2 (09:32→14:07)
[2020-05-03] MEDS: DEXTRAN 70 0.1%/HYPROMELL 0.3% 0.9 ML OPHTHALMIC SOLUTION [PF] OU SCH ×3 (09:32→23:09)
[2020-05-03 12:00] VITALS: BP 118/77
[2020-05-03] MEDS: FentaNYL CITRATE PF 500 MCG in DEXTROSE 5%-WATER 90 ML IV PRN (15:45)
[2020-05-03 16:00] VITALS: BP 105/64
[2020-05-03] MEDS: ACETAMINOPHEN 650 MG/20.3 ML SOLUTION UDCUP NG PRN (17:04)
[2020-05-03 20:00] VITALS: BP 106/67
[2020-05-03] MEDS ORDERED: SODIUM CHLORIDE 0.9% 250 ML IV ONE (20:29)
[2020-05-04] VITALS (7 sets, daily range): BP systolic 104–143; BP diastolic 69–86
[2020-05-04] MEDS: PROPOFOL 1000 MG/ISO-OSM 100 ML IV PRN ×5 (04:16→22:35)
[2020-05-04 06:31] LABS: ANION GAP 8 mmol/L (8-16); CALCIUM, TOTAL 8.7 mg/dL (8.8-10.5); CARBON DIOXIDE 26 mmol/L (22-29); CHLORIDE 107 mmol/L (98-107); CREATININE 0.86 mg/dL (0.60-1.30); GLOMERULAR FILTR. RATE CALC > 60 mL/min (>60); GLUCOSE,RANDOM 90 mg/dL (70-110); POTASSIUM 3.6 mmol/L (3.5-5.1); SODIUM SERUM 141 mmol/L (136-145); UREA NITROGEN, BLOOD 22 mg/dL (7-18)
[2020-05-04 06:37] LABS: INR 1.2 (0.9-1.1); PROTHROMBIN TIME 12.6 SEC (9.4-11.6)
[2020-05-04] MEDS ORDERED: VECURONIUM BROMIDE 10 MG/VIAL ONE (07:07)
[2020-05-04 07:20] LABS: BASOPHILS % (AUTO) 0.6 % (0.0-2.0); EOSINOPHILS % (AUTO) 2.7 % (1.0-6.0); HEMATOCRIT 40.8 % (41-53); HEMOGLOBIN 13.3 g/dL (13.5-17.5); LYMPHOCYTES # (AUTO) 1.7 K/uL (1.0-4.8); LYMPHOCYTES % (AUTO) 17.2 % (22.0-44.0); MEAN CORPUSCULAR HEMOGLOBIN 28.1 pg (26.0-34.0); MEAN CORPUSCULAR HGB CONC 32.7 G/dL (31.0-37.0); MEAN CORPUSCULAR VOLUME 86 fL (80-100); MONOCYTES # (AUTO) 0.8 K/uL (0.1-1.0); MONOCYTES % (AUTO) 7.8 % (2.0-9.0); NEUTROPHILS # (AUTO) 7.1 K/uL (1.8-7.7); NEUTROPHILS % (AUTO) 71.7 % (40.0-70.0); RED BLOOD CELL COUNT(AUTO) 4.75 MIL/uL (4.50-5.90); RED CELL DISTRIBUTION WIDTH 13.3 % (11.5-14.5)
[2020-05-04] MEDS ORDERED: VECURONIUM BROMIDE 10 MG/VIAL IVP ONE (07:30)
[2020-05-04] MEDS: HydrALAZINE HCL 25 MG TABLET NG SCH ×2 (08:00→16:00)
[2020-05-04] MEDS: SCOPOLAMINE HYDROBROMIDE 1 MG/72 HOUR PATCH TD SCH (09:00)
[2020-05-04] MEDS: DOCUSATE SODIUM 100 MG/10 ML LIQUID UDCUP PO SCH ×2 (09:00→21:00)
[2020-05-04] MEDS: CHLORHEXIDINE GLUCONATE 0.12% 15 ML UDCUP ORAL RINSE MM SCH ×2 (09:16→21:13)
[2020-05-04] MEDS: LevETIRAcetam 500 MG in DEXTROSE 5%-WATER 100 ML IV SCH ×2 (09:24→21:14)
[2020-05-04] MEDS: FAMOTIDINE 10 MG/ML 2 ML VIAL IVP SCH ×2 (09:24→21:13)
[2020-05-04] MEDS: POTASSIUM CHL 10 MEQ/WATER 50 ML IV PRN ×3 (09:25→14:07)
[2020-05-04] MEDS: DEXTRAN 70 0.1%/HYPROMELL 0.3% 0.9 ML OPHTHALMIC SOLUTION [PF] OU SCH ×2 (09:57→16:33)
[2020-05-04] MEDS: AMINO ACIDS/PROTEIN HYDROLYS 30 ML TUBE PO SCH ×2 (11:11→14:00)
[2020-05-04] MEDS: LORazepam 2 MG/ML VIAL IVP PRN (11:41)
[2020-05-04] MEDS: MORPHINE SULFATE 2 MG/ML SYRINGE IVP PRN (11:42)
[2020-05-04 12:33] LABS: PLATELET COUNT (AUTO) 290 K/uL (150-450)
[2020-05-04] MEDS: FentaNYL CITRATE PF 500 MCG in DEXTROSE 5%-WATER 90 ML IV PRN (15:44)
[2020-05-04 19:22] LABS: GLUCOSE,POINT OF CARE 111 MG/DL (70-110)
[2020-05-05] VITALS: BP 103/67
[2020-05-05] MEDS: DEXTRAN 70 0.1%/HYPROMELL 0.3% 0.9 ML OPHTHALMIC SOLUTION [PF] OU SCH ×3 (00:27→16:37)
[2020-05-05] MEDS: FentaNYL CITRATE PF 500 MCG in DEXTROSE 5%-WATER 90 ML IV PRN ×2 (01:32→12:41)
[2020-05-05] MEDS ORDERED: SODIUM CHLORIDE 0.9% 250 ML IV ONE (02:00)
[2020-05-05] MEDS: PROPOFOL 1000 MG/ISO-OSM 100 ML IV PRN ×3 (03:33→13:58)
[2020-05-05 04:00] VITALS: BP 107/74
[2020-05-05 08:00] VITALS: BP 120/74
[2020-05-05] MEDS: HydrALAZINE HCL 25 MG TABLET NG SCH ×4 (08:00→15:44)
[2020-05-05] MEDS: LevETIRAcetam 500 MG in DEXTROSE 5%-WATER 100 ML IV SCH ×2 (08:47→20:37)
[2020-05-05] MEDS: DOCUSATE SODIUM 100 MG/10 ML LIQUID UDCUP PO SCH ×3 (08:48→20:36)
[2020-05-05] MEDS: FAMOTIDINE 10 MG/ML 2 ML VIAL IVP SCH ×2 (08:48→20:36)
[2020-05-05] MEDS: CHLORHEXIDINE GLUCONATE 0.12% 15 ML UDCUP ORAL RINSE MM SCH ×2 (08:48→20:36)
[2020-05-05] MEDS: HydrALAZINE HCL 20 MG/ML VIAL IVP PRN (09:15)
[2020-05-05 11:31] LABS: ANION GAP 7 mmol/L (8-16); CALCIUM, TOTAL 8.3 mg/dL (8.8-10.5); CARBON DIOXIDE 27 mmol/L (22-29); CHLORIDE 105 mmol/L (98-107); GLOMERULAR FILTR. RATE CALC > 60 mL/min (>60); GLUCOSE,RANDOM 100 mg/dL (70-110); SODIUM SERUM 139 mmol/L (136-145); UREA NITROGEN, BLOOD 22 mg/dL (7-18)
[2020-05-05 12:00] VITALS: BP 102/68
[2020-05-05] MEDS: AMINO ACIDS/PROTEIN HYDROLYS 30 ML TUBE PO SCH (13:58)
[2020-05-05 16:00] VITALS: BP 102/72
[2020-05-05] MEDS: ACETAMINOPHEN 650 MG/20.3 ML SOLUTION UDCUP NG PRN (17:05)
[2020-05-05 20:00] VITALS: BP 123/77
[2020-05-05 20:21] LABS: GLUCOSE,POINT OF CARE 94 MG/DL (70-110)
[2020-05-05] MEDS: DIAZEPAM 5 MG TABLET PO SCH (20:36)
[2020-05-06] VITALS: BP 131/71
[2020-05-06] MEDS: DEXTRAN 70 0.1%/HYPROMELL 0.3% 0.9 ML OPHTHALMIC SOLUTION [PF] OU SCH ×3 (00:15→16:48)
[2020-05-06] MEDS: HydrALAZINE HCL 25 MG TABLET NG SCH ×3 (00:15→16:00)
[2020-05-06] MEDS: LORazepam 2 MG/ML VIAL IVP PRN ×3 (01:10→17:07)
[2020-05-06] MEDS: PROPOFOL 1000 MG/ISO-OSM 100 ML IV PRN ×2 (01:11→06:35)
[2020-05-06 04:00] VITALS: BP 126/80
[2020-05-06] MEDS ORDERED: SODIUM CHLORIDE 0.9% 250 ML IV ONE ×2 (04:06→21:08)
[2020-05-06] MEDS: ACETAMINOPHEN 650 MG/20.3 ML SOLUTION UDCUP NG PRN ×2 (04:17→12:24)
[2020-05-06 05:26] LABS: ALANINE AMINOTRANSFERASE 31 U/L (12-78); ALBUMIN 2.7 g/dL (3.4-5.0); ALKALINE PHOSPHATASE 98 U/L (46-116); ANION GAP 9 mmol/L (8-16); ASPARTATE AMINOTRANSFERASE 33 U/L (15-37); BILIRUBIN,TOTAL 1.3 mg/dL (0.1-1.0); CALCIUM, TOTAL 8.7 mg/dL (8.8-10.5); CARBON DIOXIDE 23 mmol/L (22-29); CHLORIDE 103 mmol/L (98-107); CREATININE 0.94 mg/dL (0.60-1.30); GLOMERULAR FILTR. RATE CALC > 60 mL/min (>60); GLUCOSE,RANDOM 188 mg/dL (70-110); POTASSIUM 3.9 mmol/L (3.5-5.1); SODIUM SERUM 135 mmol/L (136-145); TOTAL PROTEIN, SERUM 7.5 g/dL (6.4-8.2); UREA NITROGEN, BLOOD 25 mg/dL (7-18)
[2020-05-06] MEDS: MORPHINE SULFATE 2 MG/ML SYRINGE IVP PRN ×3 (07:36→21:15)
[2020-05-06] MEDS: LevETIRAcetam 500 MG in DEXTROSE 5%-WATER 100 ML IV SCH ×2 (07:36→20:58)
[2020-05-06 08:00] VITALS: BP 121/75
[2020-05-06] MEDS: CHLORHEXIDINE GLUCONATE 0.12% 15 ML UDCUP ORAL RINSE MM SCH ×2 (08:17→21:00)
[2020-05-06] MEDS: DOCUSATE SODIUM 100 MG/10 ML LIQUID UDCUP PO SCH ×2 (08:17→23:58)
[2020-05-06] MEDS: DIAZEPAM 5 MG TABLET PO SCH ×2 (08:18→20:58)
[2020-05-06] MEDS: FAMOTIDINE 10 MG/ML 2 ML VIAL IVP SCH ×2 (08:18→23:58)
[2020-05-06] MEDS: POVIDONE-IODINE 10% 120 ML SOLUTION TP SCH (08:21)
[2020-05-06] MEDS: HYDROGEN PEROXIDE 473 ML SOLUTION TP SCH (08:21)
[2020-05-06 12:00] VITALS: BP 130/69
[2020-05-06] MEDS: AMINO ACIDS/PROTEIN HYDROLYS 30 ML TUBE PO SCH (14:21)
[2020-05-06 16:00] VITALS: BP 120/80
[2020-05-06 20:09] VITALS: BP 146/88
[2020-05-07] VITALS (8 sets, daily range): BP systolic 105–133; BP diastolic 74–90
[2020-05-07] MEDS: DEXTRAN 70 0.1%/HYPROMELL 0.3% 0.9 ML OPHTHALMIC SOLUTION [PF] OU SCH ×4 (00:46→23:47)
[2020-05-07] MEDS: ACETAMINOPHEN 650 MG/20.3 ML SOLUTION UDCUP NG PRN ×3 (00:47→20:33)
[2020-05-07] MEDS: LevETIRAcetam 500 MG in DEXTROSE 5%-WATER 100 ML IV SCH ×2 (08:02→20:22)
[2020-05-07] MEDS: DIAZEPAM 5 MG TABLET PO SCH ×2 (08:04→20:22)
[2020-05-07] MEDS: CHLORHEXIDINE GLUCONATE 0.12% 15 ML UDCUP ORAL RINSE MM SCH ×2 (08:05→20:24)
[2020-05-07] MEDS: HydrALAZINE HCL 25 MG TABLET NG SCH ×3 (08:15→15:21)
[2020-05-07] MEDS: POVIDONE-IODINE 10% 120 ML SOLUTION TP SCH (08:15)
[2020-05-07] MEDS: HYDROGEN PEROXIDE 473 ML SOLUTION TP SCH (08:15)
[2020-05-07] MEDS: SCOPOLAMINE HYDROBROMIDE 1 MG/72 HOUR PATCH TD SCH (08:46)
[2020-05-07] MEDS: FAMOTIDINE 10 MG/ML 2 ML VIAL IVP SCH ×2 (08:47→20:22)
[2020-05-07] MEDS: DOCUSATE SODIUM 100 MG/10 ML LIQUID UDCUP PO SCH ×2 (08:50→20:24)
[2020-05-07] MEDS ORDERED: *CLINICAL-LEVOFLOXACIN IVPB DOSING CLINICAL ONE (12:30)
[2020-05-07] MEDS: LEVOFLOXACIN 750 MG/D5% WATER 150 ML IV SCH (13:26)
[2020-05-07] MEDS: AMINO ACIDS/PROTEIN HYDROLYS 30 ML TUBE PO SCH (13:47)
[2020-05-07 15:12] LABS: APPEARANCE,URINE CLEAR (CLEAR); GLUCOSE, URINE (UA) NEGATIVE (NEGATIVE); KETONES,URINE NEGATIVE (NEGATIVE); LEUKOCYTE ESTERASE ,URINE SMALL (NEGATIVE); NITRATE,URINE NEGATIVE (NEGATIVE); OCCULT BLOOD,URINE NEGATIVE (NEGATIVE); PH,URINE 5.5 (5.0-8.0); PROTEIN,URINE POS 1+ (NEGATIVE)
[2020-05-07 15:14] LABS: BILIRUBIN,URINE PRELIM. POSITIVE (NEGATIVE)
[2020-05-07 15:26] LABS: RBC,URINE 0-2 /HPF (0-2)
[2020-05-07 15:27] LABS: BACTERIA,URINE Few /HPF (None Seen); SQUAMOUS EPITHELIAL CELL,UR Rare /LPF (None Seen)
[2020-05-08 02:04] LABS: APPEARANCE,URINE CLOUDY (CLEAR); GLUCOSE, URINE (UA) NEGATIVE (NEGATIVE); KETONES,URINE NEGATIVE (NEGATIVE); LEUKOCYTE ESTERASE ,URINE NEGATIVE (NEGATIVE); NITRATE,URINE NEGATIVE (NEGATIVE); OCCULT BLOOD,URINE LARGE (NEGATIVE); PROTEIN,URINE POS 1+ (NEGATIVE)
[2020-05-08 02:09] LABS: BILIRUBIN,URINE PRELIM. POSITIVE (NEGATIVE)
[2020-05-08 02:28] LABS: BACTERIA,URINE Rare /HPF (None Seen); RBC,URINE >100 /HPF (0-2); SQUAMOUS EPITHELIAL CELL,UR None Seen /LPF (None Seen)
[2020-05-08] MEDS: MORPHINE SULFATE 2 MG/ML SYRINGE IVP PRN (02:57)
[2020-05-08 04:07] VITALS: BP 120/78
[2020-05-08 06:21] LABS: BASOPHILS % (AUTO) 0.3 % (0.0-2.0); EOSINOPHILS % (AUTO) 0.5 % (1.0-6.0); HEMATOCRIT 36.7 % (41-53); HEMOGLOBIN 11.9 g/dL (13.5-17.5); LYMPHOCYTES # (AUTO) 1.2 K/uL (1.0-4.8); LYMPHOCYTES % (AUTO) 6.4 % (22.0-44.0); MEAN CORPUSCULAR HGB CONC 32.3 G/dL (31.0-37.0); MEAN CORPUSCULAR VOLUME 87 fL (80-100); MONOCYTES # (AUTO) 1.9 K/uL (0.1-1.0); MONOCYTES % (AUTO) 10.6 % (2.0-9.0); NEUTROPHILS % (AUTO) 82.2 % (40.0-70.0); PLATELET COUNT (AUTO) 142 K/uL (150-450); RED BLOOD CELL COUNT(AUTO) 4.23 MIL/uL (4.50-5.90); RED CELL DISTRIBUTION WIDTH 13.4 % (11.5-14.5)
[2020-05-08 06:41] LABS: ALANINE AMINOTRANSFERASE 28 U/L (12-78); ALBUMIN 2.3 g/dL (3.4-5.0); ALKALINE PHOSPHATASE 105 U/L (46-116); ANION GAP 11 mmol/L (8-16); ASPARTATE AMINOTRANSFERASE 17 U/L (15-37); BILIRUBIN,TOTAL 0.7 mg/dL (0.1-1.0); CALCIUM, TOTAL 8.3 mg/dL (8.8-10.5); CARBON DIOXIDE 26 mmol/L (22-29); CHLORIDE 104 mmol/L (98-107); CREATININE 0.96 mg/dL (0.60-1.30); GLOMERULAR FILTR. RATE CALC > 60 mL/min (>60); GLUCOSE,RANDOM 129 mg/dL (70-110); SODIUM SERUM 141 mmol/L (136-145); TOTAL PROTEIN, SERUM 7.3 g/dL (6.4-8.2); UREA NITROGEN, BLOOD 21 mg/dL (7-18)
[2020-05-08 07:49] VITALS: BP 139/85
[2020-05-08] MEDS: LevETIRAcetam 500 MG in DEXTROSE 5%-WATER 100 ML IV SCH ×2 (08:20→19:48)
[2020-05-08] MEDS: HydrALAZINE HCL 25 MG TABLET NG SCH ×4 (08:20→23:54)
[2020-05-08] MEDS: DIAZEPAM 5 MG TABLET PO SCH ×2 (08:21→20:41)
[2020-05-08] MEDS: DOCUSATE SODIUM 100 MG/10 ML LIQUID UDCUP PO SCH ×2 (08:21→20:42)
[2020-05-08] MEDS: DEXTRAN 70 0.1%/HYPROMELL 0.3% 0.9 ML OPHTHALMIC SOLUTION [PF] OU SCH ×3 (08:21→23:54)
[2020-05-08] MEDS: FAMOTIDINE 10 MG/ML 2 ML VIAL IVP SCH ×2 (08:21→20:41)
[2020-05-08] MEDS: HYDROGEN PEROXIDE 473 ML SOLUTION TP SCH (09:43)
[2020-05-08] MEDS: CHLORHEXIDINE GLUCONATE 0.12% 15 ML UDCUP ORAL RINSE MM SCH ×2 (09:43→20:42)
[2020-05-08] MEDS: POVIDONE-IODINE 10% 120 ML SOLUTION TP SCH (09:43)
[2020-05-08 10:51] VITALS: BP 131/78
[2020-05-08] MEDS: ACETAMINOPHEN 650 MG/20.3 ML SOLUTION UDCUP NG PRN (11:18)
[2020-05-08] MEDS: CLINDAMYCIN 600 MG/D5% WATER 50 ML IV SCH ×2 (12:53→20:42)
[2020-05-08] MEDS: LEVOFLOXACIN 750 MG/D5% WATER 150 ML IV SCH (13:45)
[2020-05-08 15:14] VITALS: BP 115/64
[2020-05-08 15:26] LABS: COVID AG,FIA SOURCE NASOPHARYNGEAL
[2020-05-08] MEDS ORDERED: SODIUM CHLORIDE 0.9% 100 ML ONE (17:07)
[2020-05-08] MEDS ORDERED: IOVERSOL 350 MG/ML 100 ML VIAL ONE (17:08)
[2020-05-08 20:05] VITALS: BP 119/76
[2020-05-09 00:33] VITALS: BP 118/84
[2020-05-09] MEDS: CLINDAMYCIN 600 MG/D5% WATER 50 ML IV SCH ×3 (04:20→20:33)
[2020-05-09 05:15] VITALS: BP 137/79
[2020-05-09 06:47] LABS: BASOPHILS % (AUTO) 0.2 % (0.0-2.0); EOSINOPHILS % (AUTO) 0.9 % (1.0-6.0); HEMOGLOBIN 11.7 g/dL (13.5-17.5); LYMPHOCYTES % (AUTO) 7.4 % (22.0-44.0); MEAN CORPUSCULAR HEMOGLOBIN 28.1 pg (26.0-34.0); MEAN CORPUSCULAR HGB CONC 32.5 G/dL (31.0-37.0); MEAN CORPUSCULAR VOLUME 87 fL (80-100); MONOCYTES # (AUTO) 1.4 K/uL (0.1-1.0); MONOCYTES % (AUTO) 10.7 % (2.0-9.0); NEUTROPHILS # (AUTO) 10.9 K/uL (1.8-7.7); NEUTROPHILS % (AUTO) 80.8 % (40.0-70.0); RED BLOOD CELL COUNT(AUTO) 4.16 MIL/uL (4.50-5.90); RED CELL DISTRIBUTION WIDTH 13.3 % (11.5-14.5)
[2020-05-09 06:52] LABS: ANION GAP 9 mmol/L (8-16); CALCIUM, TOTAL 8.5 mg/dL (8.8-10.5); CARBON DIOXIDE 26 mmol/L (22-29); CHLORIDE 102 mmol/L (98-107); CREATININE 1.06 mg/dL (0.60-1.30); GLOMERULAR FILTR. RATE CALC > 60 mL/min (>60); GLUCOSE,RANDOM 142 mg/dL (70-110); POTASSIUM 4.1 mmol/L (3.5-5.1); SODIUM SERUM 137 mmol/L (136-145); UREA NITROGEN, BLOOD 22 mg/dL (7-18)
[2020-05-09] MEDS: HydrALAZINE HCL 25 MG TABLET NG SCH ×2 (08:11→16:14)
[2020-05-09] MEDS: LevETIRAcetam 500 MG in DEXTROSE 5%-WATER 100 ML IV SCH ×2 (08:11→20:06)
[2020-05-09] MEDS: DEXTRAN 70 0.1%/HYPROMELL 0.3% 0.9 ML OPHTHALMIC SOLUTION [PF] OU SCH ×2 (08:11→16:14)
[2020-05-09] MEDS: FAMOTIDINE 10 MG/ML 2 ML VIAL IVP SCH ×2 (08:12→20:33)
[2020-05-09] MEDS: DOCUSATE SODIUM 100 MG/10 ML LIQUID UDCUP PO SCH ×2 (08:12→20:34)
[2020-05-09] MEDS: POVIDONE-IODINE 10% 120 ML SOLUTION TP SCH (08:12)
[2020-05-09] MEDS: CHLORHEXIDINE GLUCONATE 0.12% 15 ML UDCUP ORAL RINSE MM SCH ×2 (08:12→20:34)
[2020-05-09] MEDS: DIAZEPAM 5 MG TABLET PO SCH ×2 (08:12→20:33)
[2020-05-09] MEDS: HYDROGEN PEROXIDE 473 ML SOLUTION TP SCH (08:12)
[2020-05-09 08:38] VITALS: BP 152/82
[2020-05-09 12:05] VITALS: BP 140/88
[2020-05-09 12:49] LABS: PLATELET COUNT (AUTO) 228 K/uL (150-450)
[2020-05-09] MEDS: ACETAMINOPHEN 650 MG/20.3 ML SOLUTION UDCUP NG PRN (12:56)
[2020-05-09] MEDS: LEVOFLOXACIN 750 MG/D5% WATER 150 ML IV SCH (13:47)
[2020-05-09 16:00] VITALS: BP 122/78
[2020-05-09] MEDS ORDERED: SODIUM CHLORIDE 0.9% 250 ML IV ONE (20:12)
[2020-05-09 20:20] VITALS: BP 130/79
[2020-05-10] VITALS (7 sets, daily range): BP systolic 111–140; BP diastolic 66–79
[2020-05-10] MEDS: DEXTRAN 70 0.1%/HYPROMELL 0.3% 0.9 ML OPHTHALMIC SOLUTION [PF] OU SCH ×4 (00:33→23:19)
[2020-05-10] MEDS: HydrALAZINE HCL 25 MG TABLET NG SCH ×4 (00:33→23:19)
[2020-05-10] MEDS: CLINDAMYCIN 600 MG/D5% WATER 50 ML IV SCH ×2 (04:37→11:56)
[2020-05-10 06:58] LABS: BASOPHILS % (AUTO) 0.3 % (0.0-2.0); EOSINOPHILS % (AUTO) 1.7 % (1.0-6.0); HEMATOCRIT 33.4 % (41-53); HEMOGLOBIN 10.9 g/dL (13.5-17.5); LYMPHOCYTES % (AUTO) 8.9 % (22.0-44.0); MEAN CORPUSCULAR HEMOGLOBIN 28.1 pg (26.0-34.0); MEAN CORPUSCULAR HGB CONC 32.6 G/dL (31.0-37.0); MEAN CORPUSCULAR VOLUME 86 fL (80-100); MONOCYTES # (AUTO) 1.2 K/uL (0.1-1.0); MONOCYTES % (AUTO) 10.3 % (2.0-9.0); NEUTROPHILS # (AUTO) 9.2 K/uL (1.8-7.7); NEUTROPHILS % (AUTO) 78.8 % (40.0-70.0); RED BLOOD CELL COUNT(AUTO) 3.87 MIL/uL (4.50-5.90); RED CELL DISTRIBUTION WIDTH 13.4 % (11.5-14.5)
[2020-05-10 07:18] LABS: ALANINE AMINOTRANSFERASE 35 U/L (12-78); ALBUMIN 2.3 g/dL (3.4-5.0); ALKALINE PHOSPHATASE 123 U/L (46-116); ANION GAP 8 mmol/L (8-16); ASPARTATE AMINOTRANSFERASE 27 U/L (15-37); BILIRUBIN,TOTAL 0.5 mg/dL (0.1-1.0); CALCIUM, TOTAL 8.2 mg/dL (8.8-10.5); CARBON DIOXIDE 26 mmol/L (22-29); CHLORIDE 100 mmol/L (98-107); CREATININE 0.98 mg/dL (0.60-1.30); GLOMERULAR FILTR. RATE CALC > 60 mL/min (>60); GLUCOSE,RANDOM 136 mg/dL (70-110); POTASSIUM 3.8 mmol/L (3.5-5.1); SODIUM SERUM 134 mmol/L (136-145); TOTAL PROTEIN, SERUM 7.3 g/dL (6.4-8.2); UREA NITROGEN, BLOOD 23 mg/dL (7-18)
[2020-05-10] MEDS: DOCUSATE SODIUM 100 MG/10 ML LIQUID UDCUP PO SCH ×2 (08:42→20:19)
[2020-05-10] MEDS: LevETIRAcetam 500 MG in DEXTROSE 5%-WATER 100 ML IV SCH ×2 (08:43→20:18)
[2020-05-10] MEDS: FAMOTIDINE 10 MG/ML 2 ML VIAL IVP SCH ×2 (08:48→20:18)
[2020-05-10] MEDS: DIAZEPAM 5 MG TABLET PO SCH ×2 (08:48→20:18)
[2020-05-10] MEDS: HYDROGEN PEROXIDE 473 ML SOLUTION TP SCH (08:48)
[2020-05-10] MEDS: POVIDONE-IODINE 10% 120 ML SOLUTION TP SCH (08:48)
[2020-05-10] MEDS: CHLORHEXIDINE GLUCONATE 0.12% 15 ML UDCUP ORAL RINSE MM SCH ×2 (08:54→20:18)
[2020-05-10] MEDS: SCOPOLAMINE HYDROBROMIDE 1 MG/72 HOUR PATCH TD SCH (09:00)
[2020-05-10] MEDS ORDERED: CHLO473M6 PO (13:04)
[2020-05-10] MEDS ORDERED: DIAZ5 PO (13:06)
[2020-05-10] MEDS ORDERED: DEXT1DRO OU (13:06)
[2020-05-10] MEDS ORDERED: FAMO20 PO (13:07)
[2020-05-10] MEDS ORDERED: DOCU-275 PO (13:07)
[2020-05-10] MEDS ORDERED: HYDR1SOL TP (13:07)
[2020-05-10] MEDS ORDERED: HYDR25TA84 PO (13:08)
[2020-05-10] MEDS ORDERED: LEVE500T53 PO (13:10)
[2020-05-10] MEDS ORDERED: LEVO750P7 IV (13:10)
[2020-05-10] MEDS ORDERED: METRONIDAZOLE (13:13)
[2020-05-10] MEDS ORDERED: POVI1MED TP (13:13)
[2020-05-10] MEDS ORDERED: METH1POW TD (13:14)
[2020-05-10] MEDS ORDERED: ACET-2865 PO (13:15)
[2020-05-10] MEDS ORDERED: MOM30 PO (13:16)
[2020-05-10] MEDS ORDERED: BISA-151 PO (13:16)
[2020-05-10] MEDS ORDERED: MORP2VIA2 IV (13:17)
[2020-05-10] MEDS ORDERED: ONDA-104 PO (13:17)
[2020-05-10] MEDS: LEVOFLOXACIN 750 MG/D5% WATER 150 ML IV SCH (13:25)
[2020-05-10 13:29] LABS: PLATELET COUNT (AUTO) 288 K/uL (150-450)
[2020-05-10] MEDS ORDERED: MetroNIDAZOLE 500 MG TABLET PO SCH (16:00)
[2020-05-10] MEDS: MetroNIDAZOLE 500 MG/NACL 100 ML IV SCH (20:18)
[2020-05-11] MEDS: MetroNIDAZOLE 500 MG/NACL 100 ML IV SCH ×2 (04:24→11:53)
[2020-05-11 04:55] VITALS: BP 137/98
[2020-05-11 08:14] VITALS: BP 125/90
[2020-05-11] MEDS: DOCUSATE SODIUM 100 MG/10 ML LIQUID UDCUP PO SCH (09:00)
[2020-05-11] MEDS: DIAZEPAM 5 MG TABLET PO SCH (09:05)
[2020-05-11] MEDS: LevETIRAcetam 500 MG in DEXTROSE 5%-WATER 100 ML IV SCH (09:05)
[2020-05-11] MEDS: FAMOTIDINE 10 MG/ML 2 ML VIAL IVP SCH (09:08)
[2020-05-11] MEDS: CHLORHEXIDINE GLUCONATE 0.12% 15 ML UDCUP ORAL RINSE MM SCH (09:08)
[2020-05-11] MEDS: DEXTRAN 70 0.1%/HYPROMELL 0.3% 0.9 ML OPHTHALMIC SOLUTION [PF] OU SCH ×2 (09:09→16:44)
[2020-05-11] MEDS: HYDROGEN PEROXIDE 473 ML SOLUTION TP SCH (09:10)
[2020-05-11] MEDS: POVIDONE-IODINE 10% 120 ML SOLUTION TP SCH (09:10)
[2020-05-11] MEDS: HydrALAZINE HCL 25 MG TABLET NG SCH ×2 (09:12→16:44)
[2020-05-11 11:22] VITALS: BP 119/77
[2020-05-11] MEDS: LEVOFLOXACIN 750 MG/D5% WATER 150 ML IV SCH (13:00)
[2020-05-11 16:21] VITALS: BP 132/87
== END 2020-05-11 18:25 | DRG 5 ==
LOC: EMS 17:52 → ICU 19:09 → 5S 05-06 19:10
PROVIDERS: ADMIT Internal Medicine; ATTEND Internal Medicine
PROC: 5A1955Z Respiratory Ventilation, Greater than 96 Consecutive Hours (ICD-10-PCS; principal; 2020-04-13)
PROC: 0BH17EZ Insertion of Endotracheal Airway into Trachea, Via Natural or Artificial Opening (ICD-10-PCS; 2020-04-13)
PROC: 4A00X4Z Measurement of Central Nervous Electrical Activity, External Approach (ICD-10-PCS; 2020-04-14)
PROC: 05HY33Z Insertion of Infusion Device into Upper Vein, Percutaneous Approach (ICD-10-PCS; 2020-04-25)
PROC: 0B113F4 Bypass Trachea to Cutaneous with Tracheostomy Device, Percutaneous Approach (ICD-10-PCS; 2020-05-04)
PROC: 0DH63UZ Insertion of Feeding Device into Stomach, Percutaneous Approach (ICD-10-PCS; 2020-05-05)
DX: T43.621A Poisoning by amphetamines, accidental (unintentional), initial encounter (principal); I62.9 Nontraumatic intracranial hemorrhage, unspecified; G93.40 Encephalopathy, unspecified; G93.6 Cerebral edema; G81.01 Flaccid hemiplegia affecting right dominant side; R65.10 Systemic inflammatory response syndrome (SIRS) of non-infectious origin without acute organ dysfunction; J96.00 Acute respiratory failure, unspecified whether with hypoxia or hypercapnia; I16.1 Hypertensive emergency; N39.0 Urinary tract infection, site not specified; E87.6 Hypokalemia; R41.4 Neurologic neglect syndrome; D64.9 Anemia, unspecified; F15.90 Other stimulant use, unspecified, uncomplicated; I10 Essential (primary) hypertension; E44.0 Moderate protein-calorie malnutrition; R40.3 Persistent vegetative state; R13.10 Dysphagia, unspecified; Z99.11 Dependence on respirator [ventilator] status; J32.3 Chronic sphenoidal sinusitis; Z86.73 Personal history of transient ischemic attack (TIA), and cerebral infarction without residual deficits; Z93.1 Gastrostomy status; Z20.828 Contact with and (suspected) exposure to other viral communicable diseases
CPT/HCPCS: 36245; 36569; 36600; 51702; 70450; 70486; 70496; 70551; 71260; 72193; 74160; 76937; 82805; 83735; 84100; 84132; 84145; 84295; 86850; 86900; 86901; 87040; 87070; 87081; 87086; 87186; 87205; 87426; 93005; 93306; 94002; 94003; 95816; 99291; 99292; G0238; G0378; G0480; J0360; J0696; J0712; J1956; J2060; J2250; J2270; J2704; J3010; J3480; J3490; J7030; J7050; J7060; 36415-L1; 36415-TC; 71045-TC; U0003